=== PATIENT | female | born 1930 | race Caucasian/White ===

== ENCOUNTER 2020-05-21 10:09 | Observation (INO) | payer MEDICARE ==
[~2020-05-21] VITALS: Ht 160 cm; Wt 67.5 kg
[~2020-05-21 10:09] MED LIST: ACET500T64 PO; ALEN70TA6 PO; AMLO-150 PO; ATOR10TA9 PO; FAMO20TA7 PO; FLUT15.87 NAS; FURO20TA3 PO; GABA-826 PO; IRBE75TA6 PO; WARF3TAB52 PO
--- NOTE | 2020-05-21 10:12 | NUR ---
LEAVE SPECIALIST: PT NOT IN LOBBY
--- NOTE | 2020-05-21 10:19 | NUR ---
GLOVE CLEANER: PT NOT IN LOBBY
--- NOTE | 2020-05-21 11:10 | NUR ---
PT PRESENTS TO ED WITH C/O SOB AND STERNAL CHEST PRESSURE ONSET TODAY, WORSE WITH EXCERTION. PT WEARING HOME LEVEL OF OXYGEN (STATES SHE FLUCUATES BETWEEN 2-3L/MIN VIA NC AT HOME). PT DENIES CHEST PRESSURE AT THIS TIME. PT ABLE TO SPEAK IN FULL SENTENCES WITHOUT DIFFICULTY. PT DENIES COUGH, DENIES FEVERS. EKG TAKEN IN TRIAGE. ALL MONITORS IN PLACE. CALL LIGHT IN REACH. AWAITING MD AND ORDERS AT THIS TIME.
--- NOTE | 2020-05-21 11:14 | NUR ---
BAIRON IS IN BENJAMIN, KADE [phone]
[2020-05-21] MEDS ORDERED: SODIUM CHLORIDE FLUSH 10ML SYR IVF ONE (12:00)
[2020-05-21 12:27] LABS: BASOPHILS # (AUTO) 0.02 x10^3/uL (0-0.1); BASOPHILS % (AUTO) 0 % (0-1); EOSINOPHILS # (AUTO) 0.03 x10^3/uL (0-0.4); EOSINOPHILS % (AUTO) 1 % (1-7); LYMPHOCYTES # (AUTO) 0.82 x10^3/uL (1-3.4); LYMPHOCYTES % (AUTO) 11 % (22-44); MD NO; MEAN CORPUSCULAR HEMOGLOBIN 31.6 pg (27.0-34.8); MEAN CORPUSCULAR HGB CONC 32.4 g/dL (32.4-35.8); MEAN CORPUSCULAR VOLUME 97.6 fL (80-100); MEAN PLATELET VOLUME 8.8 fL (7.4-10.4); MONOCYTES # (AUTO) 0.48 x10^3/uL (0.2-0.8); MONOCYTES % (AUTO) 7 % (2-9); NEUTROPHILS # (AUTO) 5.92 x10^3/uL (1.8-6.8); NEUTROPHILS % (AUTO) 81 % (42-75); PLATELET COUNT 166 x10^3/uL (130-400); RED BLOOD COUNT 3.66 x10^6/uL (3.82-5.3)
[2020-05-21 12:37] LABS: ALBUMIN 4.2 g/dL (3.4-5.0); ANION GAP 4 mmol/L (5-15); CALCIUM 10.2 mg/dL (8.5-10.1); CHLORIDE 98 mmol/L (98-107)
[2020-05-21 12:43] LABS: ALANINE AMINOTRANSFERASE 19 U/L (12-78); ALKALINE PHOSPHATASE 69 U/L (45-117); BILIRUBIN,TOTAL 2.2 mg/dL (0.2-1.0); CREATININE 0.62 mg/dL (0.55-1.02); TOTAL PROTEIN 7.3 g/dL (6.4-8.2)
[2020-05-21 12:51] LABS: TROPONIN I 0.436 ng/mL (0.000-0.045)
--- NOTE | 2020-05-21 12:55 | NUR ---
EDMD notified troponin 0.436. awaiting further orders.
[2020-05-21] MEDS ORDERED: TRAZODONE 50MG TABLET PO PRN (13:30)
[2020-05-21] MEDS ORDERED: POLYETHYLENE GLYCOL 17 GM PACKET PO PRN (13:30)
[2020-05-21] MEDS ORDERED: SODIUM CHLORIDE FLUSH 10ML SYR IVF PRN (13:30)
[2020-05-21] MEDS ORDERED: ACETAMINOPHEN 325 MG TABLET PO PRN (13:30)
[2020-05-21] MEDS ORDERED: LABETALOL 5MG/ML, 20ML IVPush PRN (13:30)
[2020-05-21 13:36] LABS: INTERNATIONAL NORMALIZED RATIO 1.5 (0.93-1.1)
--- NOTE | 2020-05-21 14:00 | NUR ---
DAUGHTER AT BEDSIDE WITH MD ARAIS. PIV PLACED BY EDT. PT ASSISTED TO BATHROOM TO VOID. TOLERATED WELL.
--- NOTE | 2020-05-21 14:31 | NUR ---
HOSPITALIST AKILA AT BEDSIDE FOR ADMIT ASSESSMENT. FAMILY AT BEDSIDE. MD INFORMING PT AND FAMILY OF RESULTS AND POC.
--- NOTE | 2020-05-21 14:37 | NUR ---
MD WILBURN NOTIFIED REPEAT TROP IS 0.440. NOTIFIED THAT MED REC IS FROM PREVIOUS ADMISSION, NOTIFIED THAT THIS RN WILL REVIEW AND NOTIFY IF THERE ARE ANY UPDATES REQUIRING REVIEW.
[2020-05-21] MEDS ORDERED: calcium PO (14:46)
[2020-05-21] MEDS ORDERED: preservision PO (14:46)
--- NOTE | 2020-05-21 15:00 | NUR ---
report given to RANDI Og at bedside.
--- NOTE | 2020-05-21 15:18 | NUR ---
REPORT RECEIVED FROM ROHAN BRYAN. THIS IS A 89 YO F HERE FOR A CHF EXACERBATION. PT RESTING ON GURNEY W/ CALL LIGHT IN REACH AND FAMILY AT BEDSIDE. SIDE RAILS UPX2. PT 86% ON 2L NC. INCREASED O2 TO 3L NC W/ DESIRED EFFECT, OTHER VS WDL. PT AWARE OF POC FOR ADMIT. DENIES FURTHER NEEDS AT THIS TIME.
--- NOTE | 2020-05-21 15:49 | NUR ---
MD WILBURN NOTIFIED MED REC HAS BEEN REVISED PT HAS HAD MED CHANGES SINCE LAST ADMIT. STATES SHE WILL REVIEW.
--- NOTE | 2020-05-21 16:23 | NUR ---
PT RESTING ON CINEPASSRNEY W/ CALL LIGHT IN REACH AND SIDE RAILS UPX2, CONNECTEED TO ALL MONITORING, VSS, NADN. DIET TRAY ORDERED. DENIES FURTHER NEEDS AT THIS TIME.
--- NOTE | 2020-05-21 16:30 | NUR ---
HOSPITAL BED ORDERED.
--- NOTE | 2020-05-21 16:54 | NUR ---
REPORT GIVEN TO ANA BRYAN. PT IS READY FOR TRANSPORT AT THIS TIME.
[2020-05-21 17:30] VITALS: BP 160/58
[2020-05-21] MEDS ORDERED: WARFARIN 2 MG TABLET PO-COUM ONE (18:00)
[2020-05-21 19:53] LABS: TROPONIN I 0.384 ng/mL (0.000-0.045)
[2020-05-21 20:13] VITALS: BP 155/67
[2020-05-21] MEDS ORDERED: FAMOTIDINE 20 MG TABLET PO SCH (21:00)
[2020-05-21] MEDS: ATORVASTATIN 10 MG TABLET PO SCH (21:05)
[2020-05-21] MEDS: GUAIFENESIN ER 600 MG TABLET PO SCH (21:07)
[2020-05-21] MEDS: GABAPENTIN 100 MG CAPSULE PO SCH (21:07)
[2020-05-21] MEDS: DOXYCYCLINE 100MG TABLET PO SCH (21:07)
[2020-05-21] MEDS: FLUTICASONE NASAL SPRAY 16GM NAS SCH (23:42)
[2020-05-22 02:12] VITALS: BP 146/65
[2020-05-22 05:30] LABS: INTERNATIONAL NORMALIZED RATIO 1.42 (0.93-1.1); PROTHROMBIN TIME 15.1 Seconds (9.6-11.5)
[2020-05-22 08:05] VITALS: BP 144/68
[2020-05-22] MEDS: FLUTICASONE NASAL SPRAY 16GM NAS SCH ×2 (10:40→20:37)
[2020-05-22] MEDS: DOXYCYCLINE 100MG TABLET PO SCH (10:41)
[2020-05-22] MEDS: LOSARTAN 25MG TABLET PO SCH (10:41)
[2020-05-22] MEDS: AMLODIPINE 5 MG TABLET PO SCH (10:41)
[2020-05-22] MEDS: SENNA/DOCUSATE TABLET PO SCH (10:41)
[2020-05-22] MEDS: GUAIFENESIN ER 600 MG TABLET PO SCH ×2 (10:41→20:37)
[2020-05-22 13:10] VITALS: BP 136/71
[2020-05-22] MEDS: FUROSEMIDE 40 MG/4 ML IV SCH ×2 (14:07→20:37)
[2020-05-22] MEDS ORDERED: FUROSEMIDE 40 MG/4 ML IV SCH (17:00)
[2020-05-22] MEDS ORDERED: WARFARIN 3 MG TABLET PO-COUM ONE ×2 (18:00)
[2020-05-22 18:25] VITALS: BP 127/47
[2020-05-22] MEDS: GABAPENTIN 100 MG CAPSULE PO SCH (20:37)
[2020-05-22] MEDS: ATORVASTATIN 10 MG TABLET PO SCH (20:37)
[2020-05-23 00:27] VITALS: BP 148/66
[2020-05-23 05:19] LABS: INTERNATIONAL NORMALIZED RATIO 2.13 (0.93-1.1); PROTHROMBIN TIME 22.7 Seconds (9.6-11.5)
[2020-05-23 07:00] VITALS: BP 147/61
[2020-05-23 07:45] VITALS: BP 146/77
[2020-05-23] MEDS: GUAIFENESIN ER 600 MG TABLET PO SCH (07:48)
[2020-05-23] MEDS: SENNA/DOCUSATE TABLET PO SCH (07:48)
[2020-05-23] MEDS: AMLODIPINE 5 MG TABLET PO SCH (07:48)
[2020-05-23] MEDS: FUROSEMIDE 40 MG/4 ML IV SCH (07:48)
[2020-05-23] MEDS: LOSARTAN 25MG TABLET PO SCH (07:48)
[2020-05-23] MEDS: FLUTICASONE NASAL SPRAY 16GM NAS SCH (07:48)
[2020-05-23] MEDS ORDERED: FUROSEMIDE 20 MG TABLET PO SCH (09:00)
[2020-05-23 13:12] VITALS: BP 110/51
[2020-05-23] MEDS ORDERED: FURO20TA3 PO (14:03)
[2020-05-23] MEDS ORDERED: WARFARIN 3 MG TABLET PO-COUM ONE (18:00)
== END 2020-05-23 17:24 | disposition home or self-care (01) ==
LOC: ED 13:11 → INTOOBSV 13:16 → EDIP 13:16 → 5SO 17:17
PROVIDERS: ADMIT Internal Medicine; ATTEND Hospitalist
DX: I11.0 Hypertensive heart disease with heart failure (principal); I50.9 Heart failure, unspecified; I48.20 Chronic atrial fibrillation, unspecified; I24.9 Acute ischemic heart disease, unspecified; R60.9 Edema, unspecified; I34.0 Nonrheumatic mitral (valve) insufficiency; Z79.01 Long term (current) use of anticoagulants; Z66 Do not resuscitate; Z79.899 Other long term (current) drug therapy; Z95.0 Presence of cardiac pacemaker; Z95.2 Presence of prosthetic heart valve
CPT/HCPCS: 36415; 71045; 80053; 83880; 84484; 85025; 85610; 93005; 93306; 96374; 96376; 99285; G0378; J1940